=== PATIENT | male | born 1930 | race Caucasian/White ===

== ENCOUNTER 2016-10-18 00:19 | Day surgery (SDC) | payer MEDICARE, OTHER ==
[2016-10-18] VITALS (21 sets, daily range): BP systolic 126–160; BP diastolic 45–69; PULSE 57–66; RESP 12–22; O2SAT 95–100
[~2016-10-18] VITALS: Ht 182.9 cm; Wt 119.0 kg
[~2016-10-18 00:19] MED LIST: CLON0.1T PO; HYDR12.55 PO; INSU100V7 SUBQ; ISOS60TA2 PO; LOSA50TA37 PO; RIVA15TA PO
[2016-10-18] MEDS ORDERED: Heparin 10,000 Unit/1,000 mL NS Premix IV ONE (12:05)
[2016-10-18] MEDS ORDERED: Heparin 1,000 Units/500 mL NS Premix IV ONE (12:05)
[2016-10-18 12:08] LABS: BASOPHILS % (AUTO) 0.4 % (0-3); EOSINOPHILS % (AUTO) 3.8 % (0-5); MONOCYTES % (AUTO) 6.7 % (4-12); Mean Corpuscular Hemoglobin 29.5 pg (27.0-35.0); Mean Corpuscular Volume 95.9 fL (81-100); NEUTROPHILS % (AUTO) 48.3 % (40-74); Platelet Count 200 bil/L (150-400)
[2016-10-18] MEDS ORDERED: Nitroglycerin 50,000 mcg/250 mL D5W Premix IV ONE (12:09)
--- NOTE | 2016-10-18 12:35 | NUR ---
MIRTA Patient admitted to [facility] bed 3 at 1100. at bedside. Patient denies pain. HL X 2 placed pr IVT and labs sent. MD notified on lab results. NS bolus 500 cc NS. Consent signed and witnessed. History and medications reviewed. Pre-procedure teaching done and questions answered.
[2016-10-18] MEDS ORDERED: fentaNYL-PF 50 mCg/mL 2 mL Inj ONE (12:39)
--- NOTE | 2016-10-18 13:48 | CS94 ---
[address] [address] DIAGNOSTIC CARDIAC CATHETERIZATION PATIENT: LEYDI HUTTON : 1930 MR#: [id number] ADMIT: 10/18/2016 JOB ID: [id number] SERVICE DATE: 10/18/2016 PROCEDURE: 1. Selective right and left coronary angiography. 2. Left heart catheterization. INDICATION: Recurrent chest pain. PROCEDURAL DETAILS: The reader is referred to the procedure log for complete details. Briefly, a 5-[place] system left femoral approach. Angiographic and standard Demarco catheters were used. ANGIOGRAPHIC FINDINGS: 1. Left main: Short. No significant disease. 2. LAD is a transapical moderate caliber vessel. It has mild luminal irregularities. No critical stenosis is noted in the LAD. 3. Circumflex is nondominant. It is free of any critical stenosis. 4. Right coronary artery is a moderate caliber vessel. It is free of any significant disease. 5. Left heart catheterization revealed an LVEDP of 17-20. There was a 10 mm gradient upon pullback. In summary no significant epicardial coronary artery disease. Consider microvascular angina for the patient's chest discomfort. Empiric trial of amitriptyline may help. I will leave this for discretion of Dr. Dudley. A total of 28 cc of contrast was used. The patient will be provided hydration postprocedure as well and discharged home to followup with Dr. Dudley in two weeks.
[2016-10-18] MEDS ORDERED: ASPI-973 PO (17:21)
--- NOTE | 2016-10-18 19:28 | NUR ---
MIRTA Return from [employer] at 1330. at bedside. Patient continues to deny pain. Sleeping but wakes easily to voice. No bleeding or hematoma at left groin puncture site/manual hold. Pedal pulses present. NS IV pr orders. Prior to discharge taking PO, ambulatory and voiding. Instructions reviewed, written information given and questions answered. Home with at 1930.
== END 2016-10-18 23:59 | disposition home or self-care (01) ==
LOC: SPI 00:19
PROVIDERS: ATTEND Internal Medicine Cardiovascular Disease
DX: R07.9 Chest pain, unspecified (principal); I08.0 Rheumatic disorders of both mitral and aortic valves; I10 Essential (primary) hypertension; Z79.01 Long term (current) use of anticoagulants; E11.9 Type 2 diabetes mellitus without complications; Z96.653 Presence of artificial knee joint, bilateral; Z79.4 Long term (current) use of insulin; Z87.891 Personal history of nicotine dependence
CPT/HCPCS: 36415; 80048; 85025; 93458; 99152; C1769; J1644; J2250; J3010; Q9967